=== PATIENT | female | born 1975 | race Caucasian/White ===

== ENCOUNTER 2017-03-21 20:05 | Inpatient (IN) | payer MEDICAID ==
[~2017-03-21] VITALS: Ht 149.9 cm; Wt 56.3 kg
[2017-03-21 20:27] VITALS: Ht 149.9 cm; Wt 56.3 kg
[2017-03-21] MEDS ORDERED: OXYTOCIN 30 UNITS/LR 500 ML IV PRN (20:30)
[2017-03-21] MEDS ORDERED: OXYTOCIN 30 UNITS/LR 500 ML IV SCH ×2 (20:30)
[2017-03-21] MEDS ORDERED: CARBOPROST 250 MCG INJ IM PRN (20:30)
[2017-03-21] MEDS ORDERED: MISOPROSTOL 200 MCG TAB PR PRN (20:30)
[2017-03-21] MEDS ORDERED: METHYLERGONOVINE 0.2 MG INJ IM PRN (20:30)
[2017-03-21] MEDS ORDERED: LIDOCAINE 1% (MPF) 30 ML INJ INJ PRN (20:30)
[2017-03-21] MEDS ORDERED: BUTORPHANOL 2 MG INJ IV PRN (20:30)
--- NOTE | 2017-03-21 20:57 | RADRPT ---
PROCEDURE: US OB biophysical profile. CLINICAL INDICATION: decreased movements, labor TECHNIQUE: Multiple sonographic images of the pelvis were obtained. The images were reviewed on a PACS workstation. COMPARISON: No prior studies are available for comparison. FINDINGS: There is a single viable intrauterine gestation. Cardiac activity is present with 146 beats per min edad. There is a vertex presentation. The placenta is fundal. There is no evidence of placental abruption. There is a normal amount of amniotic fluid with an ERIC = 13.8 cm. Biophysical profile: movement 2/2 tone 2/2. breathing 2/2 ERIC 2/2 Total 06/18 RPTAT: AA . IMPRESSION: Normal biophysical profile. . .Shady Joyce MD, Date Time Electronically viewed and signed by .Shady Joyce MD, MD on 03/21/2017 20:56 .S/
[2017-03-21] MEDS: LACTATED RINGER'S 1,000 ML IV SCH (21:58)
[2017-03-21] MEDS ORDERED: AMPICILLIN 2 GM/NS (PMX) 100 ML IV ONE (22:00)
[2017-03-21] MEDS ORDERED: DINOPROSTONE 10 MG VAG SUPP VAG ONE (22:00)
[2017-03-21 22:19] LABS: ADD SCAN DIFF NO
[2017-03-21 22:23] LABS: BASOPHILS % 0.7 % (0.0-2.0); EOSINOPHILS # 0.1 10^3/ul (0.0-0.5); EOSINOPHILS % 0.9 % (0.0-7.0); HEMATOCRIT 40.6 % (37.0-47.0); HEMOGLOBIN 14.1 g/dl (12.0-16.0); LYMPHOCYTES # 1.9 10^3/ul (0.8-2.9); LYMPHOCYTES % 32.9 % (15.0-51.0); MEAN CORPUSCULAR HEMOGLOBIN 32.3 pg (29.0-33.0); MEAN CORPUSCULAR HGB CONC 34.7 g/dl (32.0-37.0); MEAN CORPUSCULAR VOLUME 93.1 fl (82.0-101.0); MONOCYTE # 0.5 10^3/ul (0.3-0.9); MONOCYTES % 9.2 % (0.0-11.0); NEUTROPHIL # 3.2 10^3/ul (1.6-7.5); NEUTROPHILS % 55.4 % (39.0-77.0); PLATELET COUNT 154 10^3/UL (140-415); RED BLOOD COUNT 4.36 10^6/ul (4.20-5.40); RED CELL DISTRIBUTION WIDTH 13.3 % (11.5-14.5); WHITE BLOOD COUNT 5.8 10^3/ul (4.8-10.8)
[2017-03-21 22:49] LABS: INR 0.86; PROTIME 11.7 Sec (12.2-14.2); PT RATIO 0.9
[2017-03-22] MEDS: LACTATED RINGER'S 1,000 ML IV PRN ×2 (00:54→12:09)
[2017-03-22] MEDS ORDERED: FENTAnyl 2MCG/ML-ROPIV 0.2% 100 ML ONE (01:26)
[2017-03-22] MEDS ORDERED: TERBUTALINE 1 ML ONE (01:51)
[2017-03-22] MEDS ORDERED: TERBUTALINE 1 MG/ML INJ SC ONE (01:52)
[2017-03-22] MEDS: AMPICILLIN 1 GM/NS (PMX) 50 ML IV SCH ×2 (02:15→06:00)
[2017-03-22] MEDS ORDERED: FENTAnyl 2MCG/ML-ROPIV 0.2% 100 ML BAG EPI SCH (03:00)
[2017-03-22] MEDS ORDERED: NALOXONE (0.4 MG/ML) INJ IV PRN (03:00)
[2017-03-22] MEDS ORDERED: OXYTOCIN 30 UNITS/LR 500 ML IV SCH (03:35)
[2017-03-22] MEDS ORDERED: LACTATED RINGER'S 1,000 ML IV* SCH (03:35)
--- NOTE | 2017-03-22 03:35 | LDN ---
Date/Time of Note Date/Time of Note DATE: 03/22/17 TIME: 03:33 Delivery Summary 41 yo, being induced for cholestasis, s/p of live male , 5lbs 11oz, 8/9. I was called by nurse for variable, possible late decels; patient had progressed quickly to ant lip; I ruptured membranes and patient delivered shortly after. spontaneous delivery of placenta no perineal lacerations uterine atony noted and resolved after hemabate Weeks of Gestation 37 Placenta Delivered: Spontaneously Meconium: none Episiotomy: No Anesthesia type: Epidural Estimated blood loss: 400 Sponge & Needle done & correct: Yes All needle counts correct: Yes Problems: BRAULIO JORDAN MD March 22, 2017 03:35
[2017-03-22] MEDS ORDERED: WITCH HAZEL/GLYCERIN PAD PR PRN (04:00)
[2017-03-22] MEDS ORDERED: DIPHENHYDRAMINE 25 MG CAP PO PRN (04:00)
[2017-03-22] MEDS ORDERED: LANOLIN 7 GM TUBE TOP PRN (04:00)
[2017-03-22] MEDS: LACTATED RINGER'S 1,000 ML IV SCH (04:25)
[2017-03-22] MEDS ORDERED: MISOPROSTOL 200 MCG TAB PO ONE (04:33)
[2017-03-22] MEDS ORDERED: DIPHENOXYLATE/ATROPINE TAB PO ONE (04:33)
[2017-03-22] MEDS: IBUPROFEN 600 MG TAB PO PRN (04:47)
[2017-03-22] MEDS ORDERED: IBUPROFEN 800 MG TAB PO SCH (06:00)
[2017-03-22] MEDS ORDERED: CARBOPROST 250 MCG INJ ONE (07:00)
[2017-03-22 07:06] LABS: HEMATOCRIT 35.7 % (37.0-47.0); HEMOGLOBIN 12.2 g/dl (12.0-16.0)
[2017-03-22 09:45] VITALS: BP 118/61; PULSE 69; RESP 19
[2017-03-22] MEDS: ACETAMINOPHEN/CODEINE #3 TAB PO PRN (18:16)
[2017-03-22 19:55] VITALS: BP 104/55; PULSE 72; RESP 18
[2017-03-23] VITALS: BP 100/55; PULSE 78; RESP 18
[2017-03-23 04:30] VITALS: BP 104/61; PULSE 65; RESP 18
[2017-03-23 08:00] VITALS: BP 96/60; PULSE 69; RESP 20
[2017-03-23] MEDS: ACETAMINOPHEN/CODEINE #3 TAB PO PRN (08:09)
--- NOTE | 2017-03-23 12:18 | PN ---
Date/Time of Note Date/Time of Note DATE: 03/23/17 TIME: 12:17 OB Subjective Subjective Subjective Post normal vaginal delivery day 1 Afebrile VSs stable abdomen soft uterus firm lochia normal extremity normal Current Medications Medications (Trade) Dose Ordered Sig/Lucas Route PRN Reason Start Time Stop Time Status Last Admin Dose Admin Lactated Ringer's (Lr) 1,000 ml @ 125 mls/hr Q8H IV 03/21/17 20:25 03/22/17 10:07 DC 03/21/17 21:58 Butorphanol Tartrate (Stadol) 2 mg Q2H PRN IV PAIN 03/21/17 20:30 03/22/17 10:07 DC Lidocaine 30 ml 30 ml ONCE PRN INJ EPISIOTOMY/TEARING 03/21/17 20:30 Oxytocin/Lactated Ringer's 500 ml @ 125 mls/hr ONCE -MAY REPEAT X1 IV 03/21/17 20:30 03/22/17 10:07 DC 03/22/17 04:01 Oxytocin/Lactated Ringer's 500 ml @ 125 mls/hr ONCE IV 03/21/17 20:30 03/22/17 10:07 DC Ibuprofen (Motrin) 600 mg ONCE PRN PO Mild Pain (Pain Score 1-3) 03/21/17 20:30 03/22/17 04:47 Acetaminophen/ Codeine Phosphate 2 tab 2 tab ONCE PRN PO Moderate to Severe Pain (4-10) 03/21/17 20:30 03/23/17 08:09 Lactated Ringer's 1,000 ml @ 2,000 mls/hr Q30M PRN IV PRE-EPIDURAL BOLUS 03/21/17 20:30 03/22/17 12:09 Oxytocin/Lactated Ringer's 500 ml @ 0 mls/hr ONCE PRN IV For Hemorrhage Management 03/21/17 20:30 03/22/17 03:39 Methylergonovine Maleate (Methergine) 0.2 mg ONCE PRN IM VAGINAL BLEEDING 03/21/17 20:30 Carboprost Tromethamine (Hemabate) 250 mcg ONCE PRN IM VAGINAL BLEEDING 03/21/17 20:30 03/22/17 03:27 Misoprostol 1000 mcg 1,000 mcg ONCE PRN LA VAGINAL BLEEDING 03/21/17 20:30 Ampicillin 100 ml @ 100 mls/hr ONCE ONCE IV 03/21/17 22:00 03/21/17 22:59 DC 03/21/17 22:05 Ampicillin (Ampicillin 1 Gm/ NS (Pmx)) 50 ml @ 100 mls/hr Q4H IV 03/22/17 02:00 03/22/17 10:07 DC 03/22/17 02:15 Dinoprostone 10 mg 10 mg ONCE ONCE VAG 03/21/17 22:00 03/21/17 22:01 DC 03/21/17 22:41 Fentanyl/ Ropivacaine 100 ml @ ud STK-MED ONCE .ROUTE 03/22/17 01:26 03/22/17 01:27 DC Terbutaline Sulfate 0.25 mg 0.25 mg ONCE ONCE SC 03/22/17 01:52 03/22/17 01:53 DC 03/22/17 01:53 Terbutaline Sulfate (Brethine) 1 ml @ STK-MED ONCE .ROUTE 03/22/17 01:51 03/22/17 01:52 DC Naloxone HCl (Narcan) 0.2 mg Q2M PRN IV FOR RESP RATE 8 OR LESS 03/22/17 03:00 03/22/17 10:07 DC Fentanyl/ Ropivacaine 100 ml 100 ml EPIDURAL (PCEA) EPI 03/22/17 03:00 03/22/17 10:07 DC Oxytocin/Lactated Ringer's 500 ml @ 125 mls/hr Q4H IV 03/22/17 03:35 03/22/17 10:07 DC Lactated Ringer's (Lr) 1,000 ml @ 125 mls/hr Q8H IV* 03/22/17 03:35 03/22/17 10:07 DC 03/22/17 06:14 Ibuprofen (Motrin) 800 mg Q6 PO 03/22/17 06:00 03/22/17 10:07 DC Diphenhydramine HCl (Benadryl) 25 mg Q6H PRN PO PRURITUS 03/22/17 04:00 Witch Lucy/ Glycerin (Tucks Pads) 1 pad BEDSIDE MEDICATION PRN LA HEMORRHOID/EPISIOTMY PAIN 03/22/17 04:00 Lanolin (Syo-A-Rzhquq) 1 applic BEDSIDE MEDICATION PRN TOP BEDSIDE FOR SHAR TO NIPPLES 03/22/17 04:00 Diphenoxylate HCl/ Atropine (Lomotil) 1 tab ONCE ONCE PO 03/22/17 04:33 03/22/17 04:34 DC 03/22/17 05:01 Misoprostol (Cytotec) 600 mcg ONCE ONCE PO 03/22/17 04:33 03/22/17 04:34 DC 03/22/17 05:01 Carboprost Tromethamine (Hemabate) 250 mcg STK-MED ONCE .ROUTE 03/22/17 07:00 03/23/17 00:22 KRISTINA DONALD MD March 23, 2017 12:18
[2017-03-23] MEDS: IBUPROFEN 600 MG TAB PO PRN ×2 (12:38→23:29)
[2017-03-23 17:51] VITALS: BP 114/71; PULSE 69; RESP 20
[2017-03-23 20:00] VITALS: BP 119/72; PULSE 76; RESP 20
[2017-03-24 04:03] VITALS: BP 110/65; PULSE 70; RESP 20
[2017-03-24 07:59] VITALS: BP 102/67; PULSE 63; RESP 19
[2017-03-24] MEDS: ACETAMINOPHEN/CODEINE #3 TAB PO PRN (09:42)
--- NOTE | 2017-03-24 10:06 | DS ---
Date/Time of Note Date/Time of Note DATE: 03/24/17 TIME: 10:04 Discharge Summary Admission/Discharge Info Admit Date/Time March 21, 2017 at 20:05 Discharge Date/Time March 24, 2017 at 10 AM Final Diagnosis Post normal vaginal delivery Patient Condition: Good Procedures Normal spontaneous vaginal delivery Hx of Present Illness Term Hospital Course Satisfactory uneventful Follow-up Plan instructions given recommended patient to make appointment in 2 weeks to be seen at the clinic for post delivery check KRISTINA GALLEGOS MD March 24, 2017 10:06
== END 2017-03-24 13:06 | disposition home or self-care (01) | DRG 775 ==
LOC: L-D 20:05 → PP1 03-22 09:15
PROVIDERS: ADMIT Obstetrics & Gynecology; ATTEND Obstetrics & Gynecology
PROC: 10E0XZZ Delivery of Products of Conception, External Approach (ICD-10-PCS; principal; 2017-03-22)
DX: O80 Encounter for full-term uncomplicated delivery (principal); Z37.0 Single live birth; Z3A.37 37 weeks gestation of pregnancy
CPT/HCPCS: 62319; 76818; 85014; 85018; 85025; 85610; 85730; 86592; 86900; 86901; 87340; 99464; A4310; J0290; J2590; J3010; J3105; J7120